=== PATIENT | female | born 1985 | race Caucasian/White ===

== ENCOUNTER → 2023-02-02 10:21 | Outpatient (CLI) | payer OTHER, SELFPAY ==
--- NOTE | ~2023-02-02 | US_ITS ---
Abdominal Sonogram: Real-time sonographic imaging of the abdomen was performed. Clinical History: Abdominal pain Findings: The liver appears normal with no evidence of bile duct dilatation. Questionable very subtl e 3.9 cm hyperechoic area in the right hepatic lobe. Main portal vein demonstrates normal direction o f flow. The spleen is normal in size without evidence of focal lesion. The gallbladder is well diste nded, and demonstrates gallbladder wall polyps measuring up to 5 mm. The common bile duct measures 3 mm. The visualized pancreas, aorta, and IVC are unremarkable. The right kidney measures 11.3 cm in length and the left kidney measures 11.8 cm. There is no hydronephrosis or renal calculus. Impression: Gallbladder wall polyps, as detailed above. Probable subtle 3.9 cm hyperechoic area in the right hepatic lobe. This is consistent with benign les ion seen on prior MR exams. Reviewed, dictated and finalized at [facility]. Impression: Gallbladder wall polyps, as detailed above. Probable subtle 3.9 cm hyperechoic area in the right hepatic lobe. This is cons istent with benign lesion seen on prior MR exams.
== END ==
PROVIDERS: PCP Physician Assistant; Visit Provider Physician Assistant
DX: R10.10 Upper abdominal pain, unspecified (principal); K82.4 Cholesterolosis of gallbladder
CPT/HCPCS: 76700

== ENCOUNTER 2023-04-18 07:43 | Outpatient (CLI) | payer OTHER, SELFPAY ==
--- NOTE | ~2023-04-18 | NM_ITS ---
EXAMINATION: NM hepatobiliary wo pharm DATE: 04/18/2023 10:39 INDICATION: Gallbladder polyp COMPARISON: None. TECHNIQUE: 5 mCi Tc-99m mebrofenin (Choletec) was administered intravenously. Scintigraphic images o f the abdomen were obtained for one hour. At the 1 hour time point, the patient drank 8 oz Ensure, an d imaging was continued for 60 minutes. Gallbladder ejection fraction was calculated by the technolog ist. FINDINGS: There is normal clearance of radiotracer from the blood pool. There is homogeneous tracer u ptake by the liver. Activity progresses to the bowel and gallbladder. The gallbladder ejection fract ion (GBEF) is 34%. Note that with this technique, normal GBEF >= 33%. IMPRESSION: 1. Normal hepatobiliary scan Reviewed, dictated and finalized at location A.
== END 2023-04-18 07:44 | disposition home or self-care (01) ==
PROVIDERS: PCP Physician Assistant; Visit Provider Physician Assistant
DX: K82.4 Cholesterolosis of gallbladder (principal)
CPT/HCPCS: 78226; A9537

== ENCOUNTER → 2023-05-22 16:05 | Outpatient (CLI) | payer OTHER, SELFPAY ==
--- NOTE | ~2023-05-22 | XR_ITS ---
EXAM: XR lumbar spine 2-3V DATE: 05/22/2023 16:22 HISTORY: no injury right side lbp . COMPARISON: None available. FINDINGS: 5 nonrib-bearing lumbar-type vertebral bodies. Pedicles intact. Normal vertebral body alig nment. Vertebral body heights preserved. Disc spaces maintained. Normal facets and posterior elements . No fracture or dislocation. IMPRESSION: Normal lumbar spine radiograph findings. Reviewed, dictated and finalized at location K. ET WRITER
== END ==
PROVIDERS: PCP Physician Assistant; Visit Provider Physician Assistant
DX: M54.31 Sciatica, right side (principal)
CPT/HCPCS: 72100

== ENCOUNTER → 2023-05-30 15:30 | Outpatient (CLI) | payer OTHER, SELFPAY ==
--- NOTE | ~2023-05-30 | MR_ITS ---
EXAMINATION: MR lumbar spine wo con DATE: 05/30/2023 16:00 INDICATION: Chronic low back pain. Right-sided sciatica. TECHNIQUE: Magnetic resonance imaging (MRI) of the lumbar spine was performed without intravenous con trast. Sequences included sagittal T2-weighted FSE, sagittal T2-weighted FS FSE, sagittal T1-weighted FSE, and axial T2-weighted FSE. COMPARISON: Lumbar spine radiographs 05/22/2023 FINDINGS: There is 8 degrees dextrocurvature of lumbar spine. Vertebral body heights are normal. Ther e is moderately decreased disc height at L5-S1. The distal spinal cord signal intensity is normal. Th e conus medullaris is at T12-L1. The following disc levels are specifically discussed: L1-L2: The disc does not extend beyond the endplate margin. There is mild left facet joint osteoarthr itis. There is no neural foraminal stenosis. There is no central canal stenosis. L2-L3: The disc does not extend beyond the endplate margin. There is mild right facet joint osteoarth ritis. There is no neural foraminal stenosis. There is no central canal stenosis. L3-L4: The disc does not extend beyond the endplate margin. There is mild bilateral facet joint osteo arthritis. There is no neural foraminal stenosis. There is no central canal stenosis. L4-L5: The disc does not extend beyond the endplate margin. There is moderate bilateral facet joint o steoarthritis. There is no neural foraminal stenosis. There is no central canal stenosis. L5-S1: There is a right subarticular zone extrusion with mass effect on right S1 nerve root in right lateral recess. There is moderate bilateral facet joint osteoarthritis. There is no neural foraminal stenosis. There is mild central canal stenosis. There is severe stenosis of right lateral recess. IMPRESSION: 1. Extrusion at L5-S1 with mass effect on right S1 nerve root. Reviewed, dictated and finalized at location A. MANAGER
== END ==
PROVIDERS: PCP Physician Assistant; Visit Provider Physician Assistant
DX: M54.31 Sciatica, right side (principal); M51.27 Other intervertebral disc displacement, lumbosacral region
CPT/HCPCS: 72148